=== PATIENT | male | born 1990 | race Caucasian/White ===

== ENCOUNTER 2021-08-09 08:25 | Emergency (ER) | payer BC ==
[~2021-08-09] VITALS: Ht 160 cm; Wt 83.5 kg
[2021-08-09 08:44] VITALS: BP 149/79
--- NOTE | 2021-08-09 08:46 | NUR ---
31 Y/O MALE C/O LT LEG PAIN X1 MONTH. PT STATES HE HAD A BELT ON TOO TIGHT AND MIGHT HAVE "PINCHED A NERVE" PAIN STARTS FROM SACRAL AREA DOWN TO THE BOTTOM OF HIS FOOT. TAKING IBUPROFEN WITH NO RELIEF. STATES 10/10 CRAMPING PAIN. HE CANNOT LIE DOWN OR SIT DOWN AND UNABLE TO EXTEND LEG. MEDHX: DENIES NKA
--- NOTE | 2021-08-09 09:01 | NUR ---
DR FATIMA AT BEDSIDE EXAMINING PT
[2021-08-09] MEDS ORDERED: KETOROLAC 30 MG/ML VIAL IM ONE (09:10)
[2021-08-09] MEDS ORDERED: NAPR-54 PO (09:51)
[2021-08-09] MEDS ORDERED: CYCL-711 PO (09:51)
[2021-08-09 10:01] VITALS: BP 149/79
--- NOTE | 2021-08-09 10:01 | NUR ---
Patient discharged with v/s stable. Written and verbal after care instructions given and explained. Patient alert, oriented and verbalized understanding of instructions. Ambulatory with steady gait. All questions addressed prior to discharge. ID band removed. Patient advised to follow up with PMD. Rx of FLEXERIL AND NAPROXEN given. Patient educated on indication of medication including possible reaction and side effects. Opportunity to ask questions provided and answered.
== END 2021-08-09 21:05 | disposition home or self-care (01) ==
LOC: MED 08:25
DX: M54.32 Sciatica, left side (principal)
CPT/HCPCS: 72100; 96372; 99283; J1885

== ENCOUNTER 2024-06-19 08:36 | Emergency (ER) | payer BC ==
[~2024-06-19] VITALS: Ht 170.2 cm; Wt 91.9 kg
[~2024-06-19 08:36] MED LIST: CYCL-711 PO; NAPR-337 PO
[2024-06-19 08:43] VITALS: BP 126/84; PULSE 81; RESP 16; TEMP 97; O2SAT 99
[2024-06-19] MEDS ORDERED: ACET500T99 PO (10:07)
[2024-06-19] MEDS: ACETAMINOPHEN EXTRA STRENGTH 500 MG TAB PO ONE (10:21)
[2024-06-19 10:28] VITALS: BP 125/81; PULSE 69; RESP 16; TEMP 98.1; O2SAT 97
== END 2024-06-19 10:29 | disposition home or self-care (01) ==
LOC: MED 08:36
DX: S00.83XA Contusion of other part of head, initial encounter (principal); Z79.899 Other long term (current) drug therapy; W17.89XA Other fall from one level to another, initial encounter; Y92.89 Other specified places as the place of occurrence of the external cause; Y93.89 Activity, other specified; Y99.8 Other external cause status
CPT/HCPCS: 70450; 99284